=== PATIENT | female | born 2000 | race Caucasian/White ===

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

== ENCOUNTER 2021-02-19 01:11 | Emergency (ER) | payer OTHER, MEDICAID ==
[2021-02-19] MEDS ORDERED: Sodium Chloride 0.9% 1,000 ML IV ONE (01:37)
[2021-02-19] MEDS ORDERED: LORazepam 2 MG/ML SDV IVPUSH PRN (02:13)
[2021-02-19 02:15] LABS: ANION GAP 17.1 mEq/L (7-13); CHLORIDE,CL 108 mmol/L (98-107); SODIUM,NA 144 mmol/L (136-145)
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
== END 2021-02-19 03:07 ==
LOC: DL.ED 01:11
DX: R45.851 Suicidal ideations (principal); F10.10 Alcohol abuse, uncomplicated; S10.93XA Contusion of unspecified part of neck, initial encounter; Y90.8 Blood alcohol level of 240 mg/100 ml or more; Z79.899 Other long term (current) drug therapy; X58.XXXA Exposure to other specified factors, initial encounter
CPT/HCPCS: 36415; 80053; 80305-QW; 80307; 81001; 81025; 85025; 96374; 99284; 99285-25; J2060; J7030

== ENCOUNTER 2021-10-06 10:34 | Emergency (ER) | payer OTHER, MEDICAID | END 2021-10-06 10:56 | LOC: DL.ED 10:34 | DX: R10.9 Unspecified abdominal pain (principal); Z53.21 Procedure and treatment not carried out due to patient leaving prior to being seen by health care provider ==

== ENCOUNTER 2022-03-03 22:03 | Emergency (ER) | payer OTHER, MEDICAID ==
[2022-03-03 23:02] LABS: CORONAVIRUS COVID-19 NAA NEGATIVE (NEGATIVE); RESPIRATORY SYNCYTIAL VIR NAA NEGATIVE (NEGATIVE)
[2022-03-03] MEDS ORDERED: Lidocaine 2% Viscous Solution 15 ML UD PO ONE (23:15)
== END 2022-03-03 23:41 | disposition home or self-care (01) ==
LOC: DL.ED 22:03
DX: J03.90 Acute tonsillitis, unspecified (principal); F17.210 Nicotine dependence, cigarettes, uncomplicated; Z20.822 Contact with and (suspected) exposure to COVID-19
CPT/HCPCS: 0241U; 87081; 87430; 99284; A9270

== ENCOUNTER 2022-07-15 03:27 | Emergency (ER) | payer OTHER, MEDICAID ==
[2022-08-08 14:26] LABS: ANION GAP 20.6 mEq/L (7-13); CHLORIDE,CL 107 mmol/L (98-107); ESTIMATED GFR 90 mL/min (>=60); SODIUM,NA 144 mmol/L (136-145)
== END 2022-07-15 06:51 | disposition home or self-care (01) ==
LOC: DL.ED 03:27
DX: S09.90XA Unspecified injury of head, initial encounter (principal); F10.129 Alcohol abuse with intoxication, unspecified; W22.8XXA Striking against or struck by other objects, initial encounter
CPT/HCPCS: 36415; 70450; 80053; 80307; 85025; 99284